=== PATIENT | male | born 1935 | race Caucasian/White ===

== ENCOUNTER 2019-04-29 13:10 | Observation (INO) | payer MEDICARE ==
[2019-04-29 13:39] LABS: #Lymphocytes 0.9 thou/uL (1.20-3.40); #Monocytes 0.9 thou/uL (0.11-0.59); #Neutrophils 7.9 thou/uL (1.40-6.50); %Basophils 0.3 % (0.0-1.0); %Eosinophils 0.4 % (0.0-10.0); %Lymphocytes 9.3 % (21.0-51.0); %Monocytes 9.3 % (0.0-10.0); %Neutrophils 80.6 % (42.0-75.0); Hemoglobin 10.9 g/dL (14.0-18.0); Mean Corpuscular HGB CONC 34.1 g/dL (32.0-36.0); Mean Corpuscular Hemoglobin 31.3 pg (27.0-31.0); Mean Corpuscular Volume 91.8 fL (78.0-98.0); Mean Platelet Volume 7.9 fL (7.4-10.4); Platelet Count 190 thou/uL (130-400); RBC Distribution Width 12.7 % (11.5-14.5); Red Blood Cell (RBC) Count 3.47 mill/uL (4.70-6.10); White Blood Cell (WBC) Count 9.8 thou/uL (4.8-10.8)
[2019-04-29 14:05] LABS: ALT (SGPT) 10 U/L (8-55); AST (SGOT) 12 U/L (5-34); Albumin 3.9 g/dL (3.4-4.8); Alkaline Phosphatase 50 U/L (40-150); Anion Gap 12 mmol/L (10-20); BUN (Urea Nitrogen) 24 mg/dL (8.4-25.7); Bilirubin, Total 0.8 mg/dL (0.2-1.2); Calc. Creatinine Clearance 0 mL/min (70-130); Calcium 9.3 mg/dL (7.8-10.44); Carbon Dioxide 25 mmol/L (23-31); Chloride 102 mmol/L (98-107); Estimated GFR-MDRD 40; Globulin 2.5 g/dL (2.4-3.5); Glucose 117 mg/dL (83-110); Potassium 3.1 mmol/L (3.5-5.1); Protein, Total 6.4 g/dL (5.8-8.1); Sodium 136 mmol/L (136-145)
--- NOTE | 2019-04-29 14:58 | CT ---
Exam: CT brain PROVIDED CLINICAL HISTORY: Dizziness COMPARISON: None FINDINGS: The ventricular system is normal in size and morphology. No evidence for intracranial hemorrhage or mass effect. The extracranial soft tissues and osseous structures demonstrate no evidence for an acute abnormality. IMPRESSION: No evidence for intracranial hemorrhage or mass effect.
[2019-04-29] MEDS ORDERED: Aspirin Chewable 81 MG TAB ONE (16:47)
[2019-04-29] MEDS ORDERED: Acetaminophen 325 MG TAB ONE (17:12)
[2019-04-29] MEDS ORDERED: Potassium Chloride 20 MEQ TAB ONE (17:20)
[2019-04-29] MEDS ORDERED: NS 0.9% w/ 20 MEQ KCL 1,000 ML IV SCH (17:30)
[2019-04-29] MEDS ORDERED: Acetaminophen 650 MG Suppository PR PRN (18:04)
[2019-04-29] MEDS ORDERED: Acetaminophen 325 MG TAB PO PRN (18:04)
[2019-04-29] MEDS ORDERED: Ondansetron PF 4 MG/2 ML Vial IVP PRN (18:04)
[2019-04-29] MEDS ORDERED: Ondansetron ODT 4 MG TAB PO PRN (18:04)
--- NOTE | 2019-04-29 18:43 | PDOC.HHP ---
Hospitalist HPI - History of Present Illness Chest pain and generally weak History of Present Illness: Patient presents complaining of feeling generally unwell since yesterday. He spent several hours outside in the heat yesterday. He started to feel weak and lightheaded, laid on a bench and after eating felt a bit better. Reports having chest pain on the right side of his chest from the right lateral chest down to the right side of his abdomen, sharp and 9/10 in severity. He states it went away alone. Patient drove 70 miles home and on arrival appeared generally unwell but was not agreeable to seek medical attention as advised by family until this morning since he had not improved. Reports having chest pain when getting in and out of truck today. No associated sob or dizziness. No recent fevers or chills. Reports having neck pain causing difficulty turning his head to the right due to the pain. At present feels tired but otherwise well in himself. He sees Dr. Granado and states he had an Echo and stress test in 09/2018. ED Course: EKG done in ED showing HR of 69, and complete RBBB. No ST changes or Twave abnormalities. CT Brain done showing no evidence of intracranial abnormalities. Laboratory studies notable for low K+ of 3.1 and elevated creatinine of 1.65. He was given IV fluids with potassium replacement. Hospitalist ROS - Review of Systems Constitutional: reports: weakness, malaise. denies: fever, chills, sweats, other Eyes: denies: pain, vision change, conjunctivae inflammation, eyelid inflammation, redness, other ENT: denies: ear pain, ear discharge, nose pain, nose discharge, nose congestion , mouth pain, mouth swelling, throat pain, throat swelling, other Respiratory: denies: cough, dry, shortness of breath, hemoptysis, SOB with excertion, pleuritic pain, sputum, wheezing, other Cardiovascular: reports: chest pain. denies: palpitations, orthopnea, paroxysmal noc. dyspnea, edema, light headedness, other Gastrointestinal: denies: nausea, vomitting, abdominal pain, diarrhea, constipation, melena, hematochezia, other Genitourinary: denies: dysuria, frequency, incontinence, hematuria, retention, other Musculoskeletal: denies: neck pain, shoulder pain, arm pain, back pain, hand pain, leg pain, foot pain, other Skin: denies: rash, lesions, earline, bruising, other Neurological: denies: weakness, numbness, incoordination, change in speech, confusion, seizures, other Hospitalist History - Past Medical History Cardiac: reports: HTN, MS, Hyperlipidemia - Past Surgical History Past Surgical History: reports: Other (bilateral hand surgery) - Social History Smoking Status: Never smoker Alcohol: reports: Occassional Drugs: reports: none Living Situation: With Family Activity level: independent ambulation - Exam General Appearance: NAD, awake alert Eye: PERRL, anicteric sclera ENT: normocephalic atraumatic, no oropharyngeal lesions, moist mucosa Neck: supple, symmetric, no JVD Heart: RRR, no murmur, no gallops, no rubs Respiratory: CTAB, no wheezes, no rales, no ronchi, normal chest expansion Gastrointestinal: soft, non-tender, non-distended, normal bowel sounds Extremities: no cyanosis, no clubbing, no edema Skin: normal turgor, no lesions, no rashes Neurological: CN's grossly intact, normal sensation to touch, no weakness, no focal deficits Musculoskeletal: normal tone, normal strength, no muscle wasting Psychiatric: normal affect, normal behavior, A&O x 3 Hospitalist Results - Labs Result Diagrams: 04/29/19 13:28 04/29/19 13:28 Lab results: WBC 9.8 thou/uL (4.8-10.8) 04/29/19 13:28 Hgb 10.9 g/dL (14.0-18.0) L 04/29/19 13:28 Hct 31.9 % (42.0-52.0) L 04/29/19 13:28 MCV 91.8 fL (78.0-98.0) 04/29/19 13:28 Plt Count 190 thou/uL (130-400) 04/29/19 13:28 Neutrophils % 80.6 % (42.0-75.0) H 04/29/19 13:28 Sodium 136 mmol/L (136-145) 04/29/19 13:28 Potassium 3.1 mmol/L (3.5-5.1) L 04/29/19 13:28 Chloride 102 mmol/L (98-107) 04/29/19 13:28 Carbon Dioxide 25 mmol/L (23-31) 04/29/19 13:28 BUN 24 mg/dL (8.4-25.7) 04/29/19 13:28 Creatinine 1.65 mg/dL (0.7-1.3) H 04/29/19 13:28 Glucose 117 mg/dL (83-110) H 04/29/19 13:28 Calcium 9.3 mg/dL (7.8-10.44) 04/29/19 13:28 Total Bilirubin 0.8 mg/dL (0.2-1.2) 04/29/19 13:28 AST 12 U/L (5-34) 04/29/19 13:28 ALT 10 U/L (8-55) 04/29/19 13:28 Alkaline Phosphatase 50 U/L (40-150) 04/29/19 13:28 B-Natriuretic Peptide 42.4 pg/mL (0-100) 04/29/19 13:28 Serum Total Protein 6.4 g/dL (5.8-8.1) 04/29/19 13:28 Albumin 3.9 g/dL (3.4-4.8) 04/29/19 13:28 Hospitalist H&P A/P - Problem (1) Chest pain Code(s): R07.9 - CHEST PAIN, UNSPECIFIED Status: Acute (2) Hypokalemia Code(s): E87.6 - HYPOKALEMIA Status: Acute (3) YADIRA (acute kidney injury) Code(s): N17.9 - ACUTE KIDNEY FAILURE, UNSPECIFIED Status: Acute (4) Hyperlipidemia Code(s): E78.5 - HYPERLIPIDEMIA, UNSPECIFIED Status: Chronic (5) Hypertension Code(s): I10 - ESSENTIAL (PRIMARY) HYPERTENSION Status: Chronic Assessment and Plan: Continue to trend troponins, per patient had recent stress test and echo done with senior counsel commercial. Obtain outside records. Will add-on Mg+. K+ replaced, continue to monitor and replace as necessary. Orthostatic BPs. Gentle IV hydration. Resume home medications once verified. GI Prophylaxis. DVT prophylaxis with mechanical SCDs. PATIENT IS FULL CODE. Surrogate decision maker is his daughter Agnes Lynn.
[2019-04-29 19:07] VITALS: BMI 27.1
[2019-04-29] MEDS: Sodium Chloride 0.9% 1,000 ML IV SCH (20:16)
[2019-04-30 05:05] LABS: #Eosinphils 0.1 thou/uL (0.0-0.7); #Monocytes 0.5 thou/uL (0.11-0.59); %Basophils 0.6 % (0.0-1.0); %Eosinophils 1.1 % (0.0-10.0); %Lymphocytes 11.2 % (21.0-51.0); %Monocytes 5.5 % (0.0-10.0); %Neutrophils 81.6 % (42.0-75.0); Hemoglobin 10.5 g/dL (14.0-18.0); Mean Corpuscular HGB CONC 34.3 g/dL (32.0-36.0); Mean Corpuscular Hemoglobin 31.3 pg (27.0-31.0); Mean Corpuscular Volume 91.3 fL (78.0-98.0); Mean Platelet Volume 8.3 fL (7.4-10.4); Platelet Count 164 thou/uL (130-400); RBC Distribution Width 12.7 % (11.5-14.5); Red Blood Cell (RBC) Count 3.35 mill/uL (4.70-6.10); White Blood Cell (WBC) Count 8.6 thou/uL (4.8-10.8)
[2019-04-30 05:30] LABS: Anion Gap 12 mmol/L (10-20); BUN (Urea Nitrogen) 22 mg/dL (8.4-25.7); Calc. Creatinine Clearance 39 mL/min (70-130); Carbon Dioxide 25 mmol/L (23-31); Chloride 104 mmol/L (98-107); Estimated GFR-MDRD 41; Glucose 114 mg/dL (83-110); Potassium 3.6 mmol/L (3.5-5.1); Sodium 137 mmol/L (136-145)
[2019-04-30 06:46] LABS: Bacteria/HPF None Seen HPF (None Seen); Bilirubin Negative (Negative); Blood, Urine Negative (Negative); Clarity Clear (Clear); Glucose, Urine (Dipstick) Normal (Negative); Leukocyte Negative Leu/uL (Negative); Nitrite Negative (Negative); Protein, Urine (Dipstick) Negative (Neg-Trace); RBC/HPF None Seen HPF (0-3); Squamous Epithelial None Seen HPF (0-3); Urobilinogen 3 mg/dL (Less than 2); WBC/HPF 0-3 HPF (0-3)
[2019-04-30 06:48] LABS: Urine Culture Reflex No No
[2019-04-30] MEDS ORDERED: Aspirin 81 mg Enteric Coated Tablet PO SCH (09:00)
[2019-04-30] MEDS ORDERED: Famotidine/PF 20 mg/2ml Vial SLOW IVP SCH (09:00)
[2019-04-30] MEDS: Sodium Chloride 0.9% 1,000 ML IV SCH (14:40)
--- NOTE | 2019-04-30 14:47 | RAD ---
EXAM: Two views chest PROVIDED CLINICAL HISTORY: Elevated d-dimer and dizziness. Chest x-ray obtained for comparison with ventilation/perfusion study. COMPARISON: 12/10/2013 FINDINGS: Cardiac silhouette and pulmonary vasculature are within normal limits. A few calcified granulomata a re again seen in the lungs bilaterally. The lungs are otherwise clear. Degenerative changes are again seen in the thoracic spine. There is prominent right glenohumeral osteoarthropathy again presen t. Calcification is seen in the medial right upper quadrant which is difficult to further localize. No other interval change from prior study. IMPRESSION: 1. Calcification overlying medial right upper quadrant which is difficult to further localize on this exam. Nonemergent CT scan abdomen may be helpful for further evaluation. 2. No acute cardiopulmonary process..
--- NOTE | 2019-04-30 14:57 | NM ---
EXAM: NM Lung Vent Perf Imaging PROVIDED CLINICAL HISTORY: Elevated d-dimer and dizziness. COMPARISON: Chest x-ray on 04/30/2019 FINDINGS: A few small subsegmental perfusion defects are seen within the lateral aspect right midlung zone and at the left lung apex, and these small perfusion defects do appear to be present on the ventilation study as well and likely represent small subsegmental matched defects. No definitive ventilation/perf usion mismatch is seen. There is mild retention of radiotracer seen within the lungs bilaterally suggesting an element of COPD. Accompanying chest x-ray also obtained on this date demonstrates mild scarring in the right lung apex with evidence of prior granulomatous disease. However, the lungs are otherwise clear. IMPRESSION: 1. Low probability for pulmonary embolus. 2. Findings suggesting element of mild COPD.
[2019-04-30 16:34] VITALS: BP 140/67; TEMP 98.5
[2019-04-30] MEDS ORDERED: NIFEdipine XL 90 MG TAB PO SCH (21:00)
[2019-04-30] MEDS ORDERED: Atorvastatin Calcium 40 MG TAB PO SCH (21:00)
[2019-04-30] MEDS ORDERED: Metoprolol Tartrate 25 MG TAB PO SCH (21:00)
[2019-04-30] MEDS ORDERED: Non-Formulary Item 1 EACH (Nifedipine [Nifedipine Er] 90 MG) PO SCH (21:00)
--- NOTE | 2019-05-01 02:54 | DIS ---
DATE OF ADMISSION: 04/29/2019 DATE OF DISCHARGE: 04/30/2019 DISCHARGE DIAGNOSES: 1. Generalized weakness. 2. Generalized body aches and pains. 3. History of hypertension. 4. Hypokalemia. 5. Hypertension. 6. Coronary artery disease. HOSPITAL COURSE: The patient is an 83-year-old male, who initially presented to the hospital with complaints of generalized body aches and pains. Initially, the patient was not very detailed in his symptoms. He was found to be hypokalemic and at this time, his potassium was replaced and he was given some IV hydration. His daughter who was at the bedside stated that the patient had been working out with his family out at the sun. Also, the daughter noticed that for the past couple of days, he has been very tired getting out of bed. The patient when he was working outside, instead of drinking water, he had some pickled juice, hoping that that would help with his body cramping. The patient denied any specific chest tightness, chest pain, shortness of breath, nausea, vomiting, diarrhea or diaphoresis. I did talk extensively with the patient and the patient's family. I did get records from Dr. Norman's office, which stated that he had a carotid duplex this year and it was essentially normal. He did have some 0 to 49% stenosis, otherwise it was normal. However, he did have a cardiac PET scan, which was done on March 20, 2018 that was abnormal. Upon reviewing the records, he was recently seen by Dr. Norman, who is a surface to air weapons officer in March 2019, and based upon his myocardial PET scan perfusion, recommended medical management. The patient denied any orthopnea, PND, any dizziness, or lightheadedness. However, he did feel unwell when he came into the hospital. After hydration and replacement of the potassium, the patient felt much better. I did recommend the patient to stay and get a stress test; however, the patient stated that he wanted to go home and follow up with Dr. Norman. An appointment for has been made for the patient. The patient's family, the daughters are at the bedside. I have advised them that they will stay with the patient and follow up with him to Dr. Norman's office. Also, since he has been in the hospital, his blood pressures have been ranging from 129 to 140. I have decreased his blood pressure medications extensively. I will discontinue the hydrochlorothiazide. MEDICATIONS: I have put him on; 1. Cozaar 25 mg daily. 2. Metoprolol 12.5 b.i.d. 3. Atorvastatin 40 mg at bedtime. 4. Nifedipine 90 mg at bedtime. 5. Furosemide 20 mg daily. 6. Aspirin 81 mg daily. 7. Folic acid 1 p.o. daily. 8. Methotrexate 4 tabs every 7 days. The patient does not want to stay in the hospital. He rather follow up with Dr. Norman for a stress test or any further cardiac tests that he has required. PHYSICAL EXAMINATION: VITAL SIGNS: Temperature 98.5, pulse 65, respirations 16, O2 saturations 96% on room air, blood pressure 140/67. GENERAL: He is awake, alert, and oriented x3. Does not appear in distress. CV: S1, S2 present. No murmurs, rubs, or gallops. ABDOMEN: Soft and nontender. Bowel sounds are present x2. He also had a CT brain, which was normal. His D-dimer was elevated at 3.6. We did do a V/Q scan and it was normal, it indicated low probability of PE. He did have some mild hyperinflated lungs. He did have a chest x-ray, which indicated that he did have some calcified granulomas in the lungs bilaterally and recommended a CT of abdomen and pelvis, which could be done as an outpatient. I have asked the family to follow up with the primary care doctor in regard to this. Job ID: [id number]
[2019-05-01] MEDS ORDERED: Losartan 25 MG TAB PO SCH (09:00)
[2019-05-01] MEDS ORDERED: Folic Acid 1 MG TAB PO SCH (09:00)
[2019-05-01] MEDS ORDERED: Furosemide 20 MG TAB PO SCH (09:00)
--- NOTE | 2019-05-05 15:19 | EKG ---
Test Reason : Blood Pressure : / mmHG Vent. Rate : 069 BPM Atrial Rate : 069 BPM P-R Int : 174 ms QRS Dur : 146 ms QT Int : 430 ms P-R-T Axes : 038 -03 042 degrees QTc Int : 460 ms Normal sinus rhythm Right bundle branch block Abnormal ECG Confirmed by CAROL GIRALDO MD ([id number]), newspaper editor managing [place] ([id number]) on 05/05/2019 3:18:33 PM Referred By: Confirmed By:CAROL GIRALDO MD
== END 2019-04-30 18:13 | disposition home or self-care (01) ==
LOC: ERS 13:10 → 2SE 18:04
PROVIDERS: ADMIT Internal Medicine; ATTEND Internal Medicine
DX: R53.1 Weakness (principal); R07.9 Chest pain, unspecified; N17.9 Acute kidney failure, unspecified; I10 Essential (primary) hypertension; E78.5 Hyperlipidemia, unspecified; E87.6 Hypokalemia; I25.2 Old myocardial infarction; I25.10 Atherosclerotic heart disease of native coronary artery without angina pectoris; Z79.82 Long term (current) use of aspirin; Z79.899 Other long term (current) drug therapy
CPT/HCPCS: 70450; 71046; 78582; 80048; 80053; 81001; 83735; 83880; 84484 ×3; 85025 ×2; 85379; 93005; 96361 ×2; 96374; 96375; 97139 ×4; 99285; A9540; A9558; G0378 ×3; 36415; J3480; S0028